=== PATIENT | female | born 1980 | race Caucasian/White ===

== ENCOUNTER → 2018-10-19 | Day surgery (SDC) | payer BC ==
[2018-10-16 16:21] VITALS: BMI 37.7
[~2018-10-19] MED LIST: Lidocaine 1% PF 5 ML VIAL ONE; Sodium Bicarbonate 2.5 MEQ/5 ML VIAL ONE
[2018-10-19 13:23] VITALS: BP 120/75; TEMP 98.7
--- NOTE | 2018-10-19 15:37 | ULT ---
THYROID FNA WITH ULTRASOUND GUIDANCE: HISTORY: Complex nodule in the right thyroid lobe. History of left thyroidectomy. COMPARISON: [facility] 09/01/2018. FINDINGS: Successful ultrasound-guided fine needle aspiration. A total of four 22-gauge fine needle aspiration s were performed. No immediate postprocedure complications. TECHNIQUE: Consent was obtained to perform an ultrasound-guided FNA of a complex lesion in the left thyroid lobe . There is an anechoic focus with a dependent hyperechoic focus. A complex cyst is favored. Overal l, this region measures 0.8 x 0.6 x 0.4 cm. Right neck was prepped and draped in sterile fashion. 1% Lidocaine, buffered with sodium bicarbonate , was used for local anesthesia. Under ultrasound guidance, 4 fine needle aspirations were performed . There are no immediate or postprocedure complications. No postprocedure hematoma. IMPRESSION: Successful ultrasound-guided fine needle aspiration. Final pathologic diagnosis is pending. POS: OFF
== END ==
LOC: ULT 12:29
PROVIDERS: ATTEND Internal Medicine Endocrinology, Diabetes & Metabolism
PROC: 0GJK3ZZ Inspection of Thyroid Gland, Percutaneous Approach (ICD-10-PCS; principal; 2018-10-19)
DX: E04.1 Nontoxic single thyroid nodule (principal); E89.0 Postprocedural hypothyroidism; J45.909 Unspecified asthma, uncomplicated; F32.9 Major depressive disorder, single episode, unspecified; Z88.1 Allergy status to other antibiotic agents; Z88.5 Allergy status to narcotic agent
CPT/HCPCS: 60100; 76942; 88173; J2001

== ENCOUNTER 2020-06-23 10:02 | Outpatient (CLI) | payer BC | END 2020-06-23 10:03 | disposition home or self-care (01) | LOC: BICULT 10:02 | PROVIDERS: ATTEND Internal Medicine Endocrinology, Diabetes & Metabolism | DX: E04.8 Other specified nontoxic goiter (principal); E04.1 Nontoxic single thyroid nodule; E89.0 Postprocedural hypothyroidism | CPT/HCPCS: 76536 ==